=== PATIENT | female | born 1995 | race Caucasian/White ===

== ENCOUNTER 2017-04-07 17:28 | Emergency (ER) | payer BC ==
--- NOTE | 2017-04-07 17:47 | UC ---
Minor Trauma HPI - HPI Summary HPI Summary: 21 YEAR OLD FEMALE PRESENTS WITH NECK PAIN, BACK PAIN AND BILATERAL RIB PAIN. NO TRAUMA. - History of Current Complaint Stated Complaint: RIB,BACK,NECK PAIN Time Seen by Provider: 04/07/17 17:47 Hx Obtained From: Patient Hx Last Menstrual Period: 03/08/15 Onset/Duration: Lasting Days Severity Initially: Moderate Severity Currently: Moderate Pain Scale Used: 0-10 Numeric - 6 - Allergies/Home Medications Allergies/Adverse Reactions: Allergies Allergy/AdvReac Type Severity Reaction Status Date / Time No Known Allergies Allergy Verified 04/07/17 17:49 Home Medications: Home Medications Acetaminophen TAB* [Tylenol TAB*] 1,000 mg PO Q6H PRN 04/07/17 [History Confirmed 04/07/17] PMH/Surg Hx/FS Hx/Imm Hx Previously Healthy: Yes - Surgical History Surgical History: None - Social History Alcohol Use: None Substance Use Type: None Smoking Status (MU): Never Smoked Tobacco Household Exposure Type: Cigarettes - Immunization History Vaccination Up to Date: Yes Review of Systems Constitutional: Negative Skin: Negative Eyes: Negative ENT: Negative Respiratory: Negative Cardiovascular: Negative Gastrointestinal: Negative Genitourinary: Negative Motor: Negative Neurovascular: Negative Musculoskeletal: Other: - BACK, NECK AND BILATERAL RIB PAIN Neurological: Negative Psychological: Negative All Other Systems Reviewed And Are Negative: Yes Physical Exam Triage Information Reviewed: Yes Appearance: Well-Appearing Eye Exam: Normal ENT Exam: Normal Dental Exam: Normal Neck exam: Normal Neck: Positive: 1 Respiratory Exam: Normal Cardiovascular Exam: Normal Abdominal Exam: Normal Musculoskeletal: Positive: Other: - NECK PAIN BILATERAL UPPER BACK SPASM BILATERAL RIB PAIN Neurological Exam: Normal Psychological Exam: Normal Skin Exam: Normal Minor Trauma Course/Dx - Differential Dx/Diagnosis Provider Diagnoses: BACK PAIN. NECK PAIN. BILATERAL RIB PAIN Discharge - Discharge Plan Condition: Stable Disposition: HOME Prescriptions: Meloxicam(NF) [Mobic(NF)] 7.5 mg PO BID PRN #30 tab PRN Reason: Pain Methocarbamol TAB* [Robaxin 500 MG TAB*] 500 mg PO TID PRN #30 tab PRN Reason: Spasms - Back Patient Education Materials: Costochondritis (ED) Referrals: Myles Johns MD [Medical Doctor] - Nav Alfonso MD [Medical Doctor] -
[2017-04-07 17:53] VITALS: BP 114/75
--- NOTE | 2017-04-07 19:14 | RAD ---
INDICATION: Pain COMPARISON: None TECHNIQUE: PA and lateral views of the chest were obtained. FINDINGS: The heart and mediastinum are normal in size and contour. The lungs are grossly clear. There is no evidence of large pleural effusion. Visualized bones are normal for the patient's age. There is no radiographic evidence of free air beneath the diaphragm IMPRESSION: No radiographic evidence of acute cardiopulmonary disease.
== END 2017-04-07 19:20 | disposition home or self-care (01) ==
LOC: UCCORT 17:28
DX: M54.2 Cervicalgia (principal); M54.9 Dorsalgia, unspecified; R07.81 Pleurodynia; Z32.02 Encounter for pregnancy test, result negative
CPT/HCPCS: 71020; 81003; 84702; 87086; 99212; G0463

== ENCOUNTER 2017-09-03 15:56 | Emergency (ER) | payer BC ==
[2017-09-03 16:37] VITALS: BP 117/68
--- NOTE | 2017-09-03 18:33 | UC ---
Throat Pain/Nasal Rocky HPI - HPI Summary HPI Summary: [address], PAIN WITH SWALLOWING, WEINSTEIN AND COUGH. NO FEVER SHE IS AWARE OF. NO N /V/D OR BODY ACHES. NO FLU SHOT THIS SEASON. - History of Current Complaint Chief Complaint: UCGeneralIllness Stated Complaint: SORE THROAT 3 DAYS Time Seen by Provider: 09/03/17 18:24 Hx Obtained From: Patient Hx Last Menstrual Period: 08/18/17 Onset/Duration: Gradual Onset, Lasting Days, Still Present Severity: Moderate Pain Intensity: 9 Pain Scale Used: 0-10 Numeric Cough: Nonproductive Associated Signs & Symptoms: Positive: Negative - Allergies/Home Medications Allergies/Adverse Reactions: Allergies Allergy/AdvReac Type Severity Reaction Status Date / Time No Known Allergies Allergy Verified 09/03/17 16:37 PMH/Surg Hx/FS Hx/Imm Hx Neurological History: Seizures - Surgical History Surgical History: None - Family History Known Family History: Negative: Hypertension - Social History Alcohol Use: None Substance Use Type: None Smoking Status (MU): Never Smoked Tobacco Household Exposure Type: Cigarettes - Immunization History Vaccination Up to Date: Yes Review of Systems Constitutional: Fatigue ENT: Sore Throat Respiratory: Cough Cardiovascular: Negative Gastrointestinal: Negative Neurological: Headache All Other Systems Reviewed And Are Negative: Yes Physical Exam Triage Information Reviewed: Yes Appearance: Well-Appearing, No Pain Distress, Well-Nourished Vital Signs: Initial Vital Signs Temp 99.7 F 09/03/17 16:32 Pulse 70 09/03/17 16:32 Resp 16 09/03/17 16:32 BP 117/68 09/03/17 16:32 Pulse Ox 100 09/03/17 16:32 Vital Signs Reviewed: Yes Eyes: Positive: Conjunctiva Clear ENT: Positive: Hearing grossly normal, Pharynx normal, Other - BILAT TM OCCLUDED WITH CERUMEN Neck: Positive: Supple, Nontender, Enlarged Nodes @ - MODERATE SPFL CERVICAL LAD - NON TENDER Respiratory Exam: Normal Cardiovascular Exam: Normal Abdomen Description: Positive: Soft Musculoskeletal: Positive: No Edema Neurological: Positive: Alert Psychological: Positive: Age Appropriate Behavior Skin: Negative: rashes Diagnostics - Laboratory Diagnostic Studies Completed/Ordered: STREP NEG. FLU NEG Throat Pain/Nasal Course/Dx - Differential Dx/Diagnosis Provider Diagnoses: ACUTE VIRAL SYNDROME - SUSPECT MONONUCLEOSIS Discharge - Discharge Plan Condition: Stable Disposition: HOME Patient Education Materials: Viral Syndrome (ED) Forms: *Work Release Referrals: No Primary Care Phys,NOPCP [Primary Care Provider] - Additional Instructions: STREP AND FLU BOTH NEG. SUSPECT MONONUCLEOSIS. MONO TEST DRAWN TODAY. REST, HYDRATE, OTC MEDS NEEDED. SEEK FOLLOW-UP IF YOUR SYMPTOMS DO NOT IMPROVE EXPECTED.
== END 2017-09-03 19:12 | disposition home or self-care (01) ==
LOC: UCCORT 15:56
DX: B34.9 Viral infection, unspecified (principal)
CPT/HCPCS: 36415; 86308; 87502; 87651; 99211; G0463

== ENCOUNTER 2017-11-19 20:30 | Emergency (ER) | payer BC ==
[2017-11-19 21:03] VITALS: BP 123/81
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
--- NOTE | 2017-11-19 21:40 | RAD ---
INDICATION: Left rib injury COMPARISON: None TECHNIQUE: Multiple views of the ribs were obtained. FINDINGS: Bones: There is no evidence of acute rib fracture. LUNGS: The lungs are clear. There is no pneumothorax. Pleural spaces: There is no evidence of hemothorax. Other: None IMPRESSION: NEGATIVE RIB SERIES.
== END 2017-11-19 21:57 | disposition home or self-care (01) ==
LOC: UCCORT 20:30
DX: S20.212A Contusion of left front wall of thorax, initial encounter (principal); W50.0XXA Accidental hit or strike by another person, initial encounter; Y93.89 Activity, other specified; Y92.9 Unspecified place or not applicable; M54.9 Dorsalgia, unspecified
CPT/HCPCS: 99211; G0463

== ENCOUNTER 2018-06-23 21:21 | Emergency (ER) | payer BC, OTHER ==
[2018-06-23] MEDS ORDERED: Ibuprofen ADULT LIQ* 600 MG/30 ML UDC PO ONE (21:41)
[2018-06-23 21:45] VITALS: BP 139/82
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
--- NOTE | 2018-06-24 08:27 | UC ---
- Progress Note Progress Note: Left wrist x-ray from June 23, 2018 has been read by the radiologist as no acute disease. The provider from the same date also read it as no fracture. Therefore there is no discrepancy. Course/Dx - Diagnoses Provider Diagnoses: Left wrist sprain Discharge - Sign-Out/Discharge Documenting (check all that apply): Patient Departure All imaging exams completed and their final reports reviewed: Yes - Discharge Plan Condition: Stable Disposition: HOME Patient Education Materials: Wrist Sprain (ED) Forms: *Work Release Referrals: Myles Johns MD [Medical Doctor] - Additional Instructions: WEAR SPLINT UNTIL CLEARED. FOLLOW UP DR JOHNS IN 5 DAYS FOR A RECHECK OR SOONER IF WORSE. - Billing Disposition and Condition Condition: STABLE Disposition: Home
== END 2018-06-23 22:05 | disposition home or self-care (01) ==
LOC: UCCORT 21:21
DX: S63.502A Unspecified sprain of left wrist, initial encounter (principal); X50.0XXA Overexertion from strenuous movement or load, initial encounter; Y93.89 Activity, other specified; Y92.009 Unspecified place in unspecified non-institutional (private) residence as the place of occurrence of the external cause
CPT/HCPCS: 99213; A9270-GY; G0463

== ENCOUNTER 2018-10-08 09:54 | Emergency (ER) | payer BC ==
--- OUTSIDE RECORDS SUMMARY | 2018-10-08 10:08 | XMS REPORT | Continuity of Care Document ---
:1995 External Reference #:[id number] Author Name Alaina Knight Care Team Providers Name Role Phone Nuha Brito M.D. Care Team Information Choir Member Unavailable Payers Date Identification Numbers Payment Provider Subscriber Effective: 2018 Policy Number: [id number] [employer] Destiny Bhatia PayID: [id number] [address] [address] [place] [address] Expires: 2015 Policy Number: [employer] Medicaid Destiny Bhatia [id number] PayID: [id number] [address] [address] [place] [address] Effective: 2018 Policy Number: [id number] [place] [employer] Destiny Bhatia Onset: 2018 Group Name: [address] [address] PayID: [place] [address] Advance Directives Description No Information Available Problems Date Description Provider Status Onset: 07/17/2015 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 Father No Current Problems Social History Type Date Description Comments Sex Unknown Marital Status Single Lives With Brother Occupation Currently Working ETOH Use Occasionally consumes alcohol Tobacco Use Start: Unknown Patient has never smoked Recreational Drug Use Denies Drug Use Smoking Status Reviewed: 09/21/18 Patient has never smoked Allergies, Adverse Reactions, Alerts Description No Known Drug Allergies Medications Medication Date Status Form Strength Qnty SIG Indications Ordering Provider Ibuprofen Active Capsules 200mg as needed Unknown 0 Tylenol Active Tablets 325mg take 2 tabs Unknown 0 as needed every 6 hours for pain/fever Miralax Hx Powder 3350NF 17 gm every Unknown 0 - day as needed 8 Colace Hx Capsules 100mg 1 by mouth Unknown 0 - daily 8 Immunizations Description No Information Available Vital Signs Date Vital Result Comment 09/21/2018 8:29am Height 63 inches 5'3" Weight 105.00 lb BP Systolic Sitting 114 mmHg BP Diastolic Sitting 62 mmHg Respiratory Rate 16 /min Pain Level 4 BMI (Body Mass Index) 18.6 kg/m2 07/24/2018 8:36am Height 63 inches 5'3" Weight 105.00 lb Heart Rate 70 /min BP Systolic Sitting 110 mmHg L BP Diastolic Sitting 60 mmHg L Respiratory Rate 12 /min Pain Level 3 O2 % BldC Oximetry 98 % BMI (Body Mass Index) 18.6 kg/m2 07/10/2018 8:48am Height 63 inches 5'3" Weight 105.00 lb Heart Rate 72 /min BP Systolic Sitting 108 mmHg BP Diastolic Sitting 68 mmHg Pain Level 6 BMI (Body Mass Index) 18.6 kg/m2 06/25/2018 10:11am Height 63 inches 5'3" Weight 105.00 lb BP Systolic Sitting 116 mmHg BP Diastolic Sitting 68 mmHg Respiratory Rate 16 /min Pain Level 8 BMI (Body Mass Index) 18.6 kg/m2 07/17/2015 11:02am Height 63 inches 5'3" Weight 115.00 lb Heart Rate 68 /min BP Systolic Sitting 112 mmHg BP Diastolic Sitting 72 mmHg Respiratory Rate 14 /min BMI (Body Mass Index) 20.4 kg/m2 Blood Pressure Percentile 0 % Height Percentile 31 % Weight Percentile 27th Results Description No Information Available Procedures Date Code Description Status 05/21/2012 03018 EEG Recording Awake & Asleep Completed Encounters Type Date Location Provider Dx Diagnosis Office Visit 07/24/2018 Orthopedic Myles Johns, S54.12xD Injury of median 8:45a [facility] MD nerve at forearm [place] level, left arm, subs S54.12xD 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, left arm, subs Office Visit 07/10/2018 8:45a Orthopedic Myles [place] S54.12xD Injury of [facility] Linda Johns MD median nerve AT [place] at forearm level, left arm, subs S54.12xD 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, left arm, subs Office Visit 06/25/2018 10:15a [facility] [place] S54.12xA Injury of [facility] Linda Johns MD median nerve AT [place] at forearm level, left arm, init S63.502A Unspecified sprain of left wrist, initial encounter Office 07/17/2015 [place]/[facility] Jenkins G40.319 Generalized Visit 11:00a [facility]o idiopathic [employer] epilepsy, intractable, w/o stat epi Office 04/20/2012 [place]/[facility]ick Jenkins 345.00 Epilepsy Visit 2:15p [facility] Nonconvulsive W/O [employer] Intractable Plan of Treatment 09/21/2018 - Myles Johns MDG56.02 Carpal tunnel syndrome, left upper limbNew Orders:EMG w/Nerve Conduct Study, Upper, Ordered: 09/21/18Follow up: Follow up: after testing is [id number] 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, left arm, subsequenNew Orders:EMG w/Nerve Conduct Study, Upper, Ordered: 09/21/18Follow up:Follow up: after testing is completed
[2018-10-08 10:31] VITALS: BP 119/73
--- NOTE | 2018-10-08 10:48 | UC ---
Lower Extremity/Ankle HPI - HPI Summary HPI Summary: Right foot pain that started in great toe on Friday. Now has pain on the top of the foot and up around her ankle. Worse with applying pressure. Noted some swelling. Denies any known trauma. Denies history of gout. [ End ] - History of Current Complaint Chief Complaint: UCLowerExtremity Stated Complaint: RIGHT FOOT PAIN Time Seen by Provider: 10/08/18 10:38 Hx Obtained From: Patient Hx Last Menstrual Period: 09/2018 ?: No Onset/Duration: Sudden Onset, Lasting Days Severity Initially: Severe Severity Currently: Severe Pain Intensity: 9 Aggravating Factor(s): Standing, Ambulation Alleviating Factor(s): Rest Able to Bear Weight: Yes - Allergies/Home Medications Allergies/Adverse Reactions: Allergies Allergy/AdvReac Type Severity Reaction Status Date / Time No Known Allergies Allergy Verified 10/08/18 10:25 Home Medications: Home Medications Acetaminophen [Tylenol Extra Strength] 1,000 mg PO Q6HR PRN 10/08/18 [History Confirmed 10/08/18] PMH/Surg Hx/FS Hx/Imm Hx Previously Healthy: Yes - Surgical History Surgical History: None - Family History Known Family History: Negative: Hypertension - Social History Alcohol Use: Occasionally Substance Use Type: None Smoking Status (MU): Never Smoked Tobacco Have You Smoked in the Last Year: No Household Exposure Type: Cigarettes - Immunization History Vaccination Up to Date: Yes Review of Systems All Other Systems Reviewed And Are Negative: Yes Constitutional: Positive: Negative Skin: Positive: Negative Eyes: Positive: Negative ENT: Positive: Negative Respiratory: Positive: Negative Cardiovascular: Positive: Negative Gastrointestinal: Positive: Negative Genitourinary: Positive: Negative Motor: Positive: Negative Neurovascular: Positive: Negative Musculoskeletal: Positive: Arthralgia, Decreased ROM, Edema, Myalgia Neurological: Positive: Negative Psychological: Positive: Negative Is Patient Immunocompromised?: No Physical Exam Triage Information Reviewed: Yes Appearance: Well-Appearing, Well-Nourished, Pain Distress Vital Signs: Initial Vital Signs Temp 97.6 F 10/08/18 10:25 Pulse 72 10/08/18 10:25 Resp 15 10/08/18 10:25 BP 119/73 10/08/18 10:25 Pulse Ox 100 10/08/18 10:25 Vital Signs Reviewed: Yes Eye Exam: Normal ENT Exam: Normal Dental Exam: Normal Neck exam: Normal Respiratory Exam: Normal Respiratory: Positive: Chest non-tender, Lungs clear, Normal breath sounds Cardiovascular Exam: Normal Cardiovascular: Positive: RRR, No Murmur, Pulses Normal Abdominal Exam: Normal Abdomen Description: Positive: Nontender, No Organomegaly, Soft Bowel Sounds: Positive: Present Musculoskeletal: Positive: Strength Limited @ - hard to walk, ROM Limited @ - due to swelling and pain in left foot, Edema @ - from toes to above the ankle Neurological Exam: Normal Neurological: Positive: Alert Psychological Exam: Normal Skin Exam: Normal Lower Extremity Course/Dx - Course Course Of Treatment: hx obtained, exam performed ,meds reviewed, xray obtained and was negative for fracture, cassius wrap applied, referred to Dr Johns if not improving. - Differential Dx/Diagnosis Differential Diagnosis/HQI/PQRI: Cellulitis, Contusion, Dislocation, Fracture ( Closed), Gout, Infection, Sprain, Strain Provider Diagnosis: Swelling of left foot, Left foot pain Discharge - Sign-Out/Discharge Documenting (check all that apply): Patient Departure All imaging exams completed and their final reports reviewed: Yes - Discharge Plan Condition: Stable Disposition: HOME Prescriptions: Cephalexin CAP* [Keflex CAP*] 500 mg PO TID #21 cap Patient Education Materials: Cellulitis (ED) Forms: *Work Release Referrals: No Primary Care Phys,NOPCP [Primary Care Provider] - Additional Instructions: 1. stay off foot, elevate at rest 2. Use the antibiotic, if not improving in the next 2-3 days, follow up with Dr Johns or your primary doctor. 3. warm water soaks 2-3 times a day - Billing Disposition and Condition Condition: STABLE Disposition: Home
== END 2018-10-08 11:48 | disposition home or self-care (01) ==
LOC: UCCORT 09:54
DX: M79.671 Pain in right foot (principal); R22.41 Localized swelling, mass and lump, right lower limb
CPT/HCPCS: 99212; G0463

== ENCOUNTER 2018-10-11 12:28 | Emergency (ER) | payer BC ==
[2018-10-11 12:58] VITALS: BP 127/70
--- NOTE | 2018-10-11 13:25 | UC ---
Lower Extremity/Ankle HPI - HPI Summary HPI Summary: pt seen here on 10/08/18 for pain in her R foot. Xray was negative, she was placed on Keflex for possible infection. She returns here today d/t pain not improving despite taking abx. No swelling, redness or deformity noted at triage. Denies fever or any injury/trauma to her R foot, she has an appt with Dr. Johns on 10/22/18 The foot has improved, the swelling is less and there is no more erythema. patient is still having pain along the top of the great toe into the foot with movement [ End ] - History of Current Complaint Chief Complaint: UCLowerExtremity Stated Complaint: RT FOOT RECHECK Time Seen by Provider: 10/11/18 13:11 Hx Obtained From: Patient Hx Last Menstrual Period: 10/02/18 ?: No Onset/Duration: Sudden Onset, Lasting Days Severity Initially: Severe Severity Currently: Severe Pain Intensity: 8 Aggravating Factor(s): Standing, Ambulation Alleviating Factor(s): Rest Able to Bear Weight: Yes - Allergies/Home Medications Allergies/Adverse Reactions: Allergies Allergy/AdvReac Type Severity Reaction Status Date / Time No Known Allergies Allergy Verified 10/11/18 12:58 PMH/Surg Hx/FS Hx/Imm Hx Previously Healthy: Yes - Surgical History Surgical History: None - Family History Known Family History: Negative: Hypertension - Social History Alcohol Use: Occasionally Substance Use Type: None Smoking Status (MU): Never Smoked Tobacco Have You Smoked in the Last Year: No Household Exposure Type: Cigarettes - Immunization History Vaccination Up to Date: Yes Review of Systems All Other Systems Reviewed And Are Negative: Yes Constitutional: Positive: Negative Skin: Positive: Negative Eyes: Positive: Negative ENT: Positive: Negative Respiratory: Positive: Negative Cardiovascular: Positive: Negative Gastrointestinal: Positive: Negative Genitourinary: Positive: Negative Motor: Positive: Negative Musculoskeletal: Positive: Arthralgia Neurological: Positive: Negative Psychological: Positive: Negative Is Patient Immunocompromised?: No Physical Exam Triage Information Reviewed: Yes Appearance: Well-Appearing, Well-Nourished, Pain Distress Vital Signs: Initial Vital Signs Temp 98.8 F 10/11/18 12:50 Pulse 62 10/11/18 12:50 Resp 16 10/11/18 12:50 BP 127/70 10/11/18 12:50 Pulse Ox 99 10/11/18 12:50 Vital Signs Reviewed: Yes Eye Exam: Normal ENT Exam: Normal Dental Exam: Normal Neck exam: Normal Respiratory Exam: Normal Respiratory: Positive: Chest non-tender, Lungs clear, Normal breath sounds Cardiovascular Exam: Normal Cardiovascular: Positive: RRR, No Murmur, Pulses Normal Abdominal Exam: Normal Abdomen Description: Positive: Nontender, No Organomegaly Bowel Sounds: Positive: Present Musculoskeletal: Positive: No Edema, Strength Limited @ - difficult to bear weight on right great toe, ROM Limited @ - in great toe Neurological Exam: Normal Neurological: Positive: Alert Psychological Exam: Normal Skin Exam: Normal Lower Extremity Course/Dx - Course Course Of Treatment: hx obtained, exam performed , meds reviewed, foot has improved since last visit , advised to continue with current treatment and to use post op shoe for more support. follow up with ortho at scheduled appointment. - Differential Dx/Diagnosis Differential Diagnosis/HQI/PQRI: Cellulitis, Fracture (Closed), Sprain, Strain Provider Diagnosis: Right foot pain Discharge - Sign-Out/Discharge Documenting (check all that apply): Patient Departure All imaging exams completed and their final reports reviewed: No Studies - Discharge Plan Condition: Stable Disposition: HOME Patient Education Materials: Arthralgia (ED) Referrals: No Primary Care Phys,NOPCP [Primary Care Provider] - Additional Instructions: 1. the foot is improving, 2. continue with the keflex 3. Continue with Tylenol 1000 mg and 400-600 mg of ibuprofen every 8 hours. 4. Warm water saoks 1-2 times a day 5. use the post op shoe for more support. 6. Elevated foot at rest and follow up with your Dr johns appointment. - Billing Disposition and Condition Condition: STABLE Disposition: Home - Attestation Statements Provider Attestation: Per institutional requirements, I have reviewed the chart, however, I was not consulted specifically or made aware of this patient by the midlevel provider. I did not personally evaluate, interact with , or disposition this patient.
== END 2018-10-11 13:34 | disposition home or self-care (01) ==
LOC: UCCORT 12:28
DX: M79.671 Pain in right foot (principal)
CPT/HCPCS: 99211; G0463

== ENCOUNTER 2019-03-04 06:31 | Day surgery (SDC) | payer BC, OTHER ==
[~2019-03-04 06:31] MED LIST: Buffered Lidocaine 1% SYRIN* 1 ML/SYRINGE INTRADERM ONE; Famotidine IV* 10 MG/ML 2 ML (20 mg) IV ONE; Famotidine IV* 10 MG/ML 2 ML (20 mg) ONE; Lactated Ringers 1000 ML Bag* 1,000 ML IV SCH
[2019-03-04] MEDS ORDERED: Buffered Lidocaine 1% SYRIN* 1 ML/SYRINGE INTRADERM ONE (07:06)
[2019-03-04] MEDS ORDERED: Bupivacaine 0.25% SDV* 30 ML ONE (07:15)
[2019-03-04] MEDS ORDERED: Midazolam* 1 MG/ML 5 ML VIAL (5 MG) ONE (07:36)
[2019-03-04] MEDS ORDERED: fentaNYL* 50 MCG/ML 2 ML VIAL (100 MCG VIAL) ONE (07:36)
[2019-03-04] MEDS ORDERED: Ketorolac INJ* 30 MG/ML 1 ML VIAL ONE (07:44)
[2019-03-04] MEDS ORDERED: Propofol* 10 MG/ML 20 ML BTL ONE (07:44)
[2019-03-04] MEDS ORDERED: Lidocaine 2% PF * 5 ML VIAL ONE (07:44)
[2019-03-04] MEDS ORDERED: DiMENhydriNATE IV* 50 MG/ML VIAL IV PUSH PRN (07:56)
[2019-03-04] MEDS ORDERED: Acetaminophen TAB* 325 MG PO PRN (07:56)
[2019-03-04] MEDS ORDERED: Naloxone* 0.4 MG/ML 1 ML VIAL IV PRN (07:56)
[2019-03-04] MEDS ORDERED: Ondansetron INJ* 2 MG/ML VIAL ONE (08:08)
[2019-03-04 10:00] VITALS: BP 113/65
--- NOTE | 2019-03-04 14:50 | OP ---
DATE OF OPERATION: 03/04/19 [facility] DATE OF : 89 SURGEON: Román Shen MD LUMBER STACKER OPERATOR: CHARLETTE Headley ANESTHESIOLOGIST: Dr. Franks. ANESTHESIA: Local MAC. PRE-OP DIAGNOSES: 1. Left carpal tunnel syndrome. 2. 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 POST-OP DIAGNOSES: 1. Left carpal tunnel syndrome. 2. 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 OPERATIVE PROCEDURE: 1. Left open carpal tunnel release. 2. Left median nerve decompression in the proximal forearm with release of the lacertus fibrosus. INDICATIONS: Destiny has significant progressive symptoms, being unable to stop them nonoperatively, we decided together to do the releases. She understands the risks and benefits. She wanted to proceed. She understands there is a risk that she could develop symptoms despite doing surgery. ESTIMATED BLOOD LOSS: 2 mL. COMPLICATIONS: None. FINDINGS: See above and below. OPERATIVE PROCEDURE: Destiny was seen in the preoperative holding area. The correct site, side, and procedures were identified. We came back to the operating room. The arm was prepped and draped in the usual fashion. I then anesthetized the operative site with 0.25% plain Marcaine. A time-out was performed. The arm was exsanguinated with the Esmarch and the tourniquet was inflated to 225 mmHg. I made a longitudinal incision about 2 cm in the proximal palm. Dissection was carried down through the subcutaneous tissue and palmar fascia. Transverse carpal ligament was released just off the radial aspect of the hook of the hamate and the release was completed distally and then proximally, I released the subcutaneous tissue and fascia and retracted that out of the way and released the remainder of the transverse carpal ligament and distal antebrachial fascia. I thought there was a band of distal antebrachial fascia just proximal at the wrist crease that I could not get with good visualization, I thought I could get it safely, so I made a 1-cm transverse incision just proximal to the wrist flexion crease overlying that band. Dissection was carried down. Ragnell retractors were placed. The band was seen. I released the remainder of the distal antebrachial fascia. At this point, the release was completed, it was looking excellent. I irrigated out the wound. The skin was closed with 4-0 nylon suture. I then turned my attention to the proximal forearm. I started just off the ulnar aspect of the distal biceps tendon and made a 2-cm transverse incision over the lacertus fibrosus. Dissection was carried down bluntly. Full thickness flaps were raised off the lacertus fibrosus and the antebrachial fascia. The lacertus fibrosus was released with the tenotomy scissors. I went ahead and released the fascia overlying the median nerve distally for several centimeters and then proximally as well for several centimeters taking great care to preserve the neurovascular structures. At this point, everything was looking good. The nerve was looking very nicely released. I had excellent visualization of the median nerve. The wound was irrigated out and the skin was closed with 3-0 Monocryl and Steri-Strips. The wounds were dressed with Xeroform, 4x4, sterile Webril and then Mitchel bandage. She was taken to the recovery room in stable condition. [id number]/CPS #: [id number] FREDO
== END 2019-03-04 10:12 | disposition home or self-care (01) ==
LOC: OREAST 06:31
PROVIDERS: ATTEND Orthopaedic Surgery Hand Surgery
DX: G56.02 Carpal tunnel syndrome, left upper limb (principal); G56.12 Other lesions of median nerve, left upper limb; G40.309 Generalized idiopathic epilepsy and epileptic syndromes, not intractable, without status epilepticus
CPT/HCPCS: 81025; J1885; J2250; J2405; J2704; J3010; J3490

== ENCOUNTER 2019-10-21 10:07 | Emergency (ER) | payer OTHER ==
[2019-10-21 10:33] VITALS: BP 117/70
--- NOTE | 2019-10-21 10:54 | UC ---
Throat Pain/Nasal Rocky HPI - HPI Summary HPI Summary: Patient is a 24yo female presenting with sore throat since yesterday. Denies other URI symptoms. Notes WEINSTEIN. Denies fever and chills. Denies difficulty swallowing but notes increased pain with it. Denies n/v. Taking ibuprofen and tylenol with minimal relief of pain. - History of Current Complaint Chief Complaint: UCRespiratory Stated Complaint: ST Hx Obtained From: Patient Hx Last Menstrual Period: 09/27/19 Pain Intensity: 10 Pain Scale Used: 0-10 Numeric - Allergies/Home Medications Allergies/Adverse Reactions: Allergies Allergy/AdvReac Type Severity Reaction Status Date / Time No Known Allergies Allergy Verified 10/21/19 10:15 Home Medications: Home Medications Acetaminophen [Tylenol Extra Strength] 1,000 mg PO Q6HR PRN 10/08/18 [History Confirmed 10/21/19] Ibuprofen 800 mg PO Q6H PRN 02/23/19 [History Confirmed 10/21/19] Penicillin VK 500 MG TAB(NF) [Penicillin VK 500 mg Tab] 500 mg PO BID 10 Days # 20 tab 10/21/19 [Rx] PMH/Surg Hx/FS Hx/Imm Hx Previously Healthy: Yes - Surgical History Surgical History: Yes Surgery Procedure, Year, and Place: LEFT WRIST CARPAL TUNNEL RELEASE DECOMPRESSION - NO METAL 03[place]04/[place] [facility] [place] Family History Known Family History: Negative: Hypertension - Social History Alcohol Use: Occasionally Substance Use Type: None Smoking Status (MU): Never Smoked Tobacco Have You Smoked in the Last Year: No Household Exposure Type: Cigarettes - Immunization History Vaccination Up to Date: Yes Review of Systems All Other Systems Reviewed And Are Negative: Yes Constitutional: Positive: Negative ENT: Positive: Sore Throat Respiratory: Positive: Negative Cardiovascular: Positive: Negative Gastrointestinal: Positive: Negative Musculoskeletal: Positive: Negative Neurological/Mental Status: Positive: Headache Physical Exam - Summary Physical Exam Summary: Vital Signs Reviewed: Yes A+Ox3, no distress Eyes: Conjunctiva Clear ENT: Hearing grossly normal, b/l cerumen impaction, moist, uvula midline, + exudates, +erythema, +tonsillar swelling Neck: Positive: Supple, +tonsillar node enlargement Respiratory: Positive: No respiratory distress, No accessory muscle use + CTA throughout no w/r Cardiovascular: RRR nl s1, s2 no m/r Musculoskeletal Exam: ARAUJO x 4 without difficulty Neurological: Positive: Alert Psychological: Positive: age appropriate behavior Skin: Positive: no rash, no ecchymosis Vital Signs: Initial Vital Signs Temp 98.6 F 10/21/19 10:16 Pulse 105 10/21/19 10:16 Resp 16 10/21/19 10:16 BP 117/70 10/21/19 10:16 Pulse Ox 100 10/21/19 10:16 Lab Results 10/21/19 Range/Units 10:47 Group A Strep Rapid Positive H (Negative) Throat Pain/Nasal Course/Dx - Course Course Of Treatment: Positive rapid strep. Ear irrigation performed on b/l ears with cerumen removed from left to reveal normal TM. Cerumen impaction not improved on the right and patient intolerant of continued attempts at removal. Instructed to follow up with pcp if needed. I treated patient with penicillin vk and instructed to return or follow up with pcp if no improvement within 10 days. Patient voiced understanding and agreed with treatment plan. - Differential Dx/Diagnosis Provider Diagnosis: Impacted cerumen of both ears, Strep pharyngitis Discharge ED - Sign-Out/Discharge Documenting (check all that apply): Patient Departure All imaging exams completed and their final reports reviewed: No Studies - Discharge Plan Condition: Stable Disposition: HOME Prescriptions: Penicillin VK 500 MG TAB(NF) [Penicillin VK 500 mg Tab] 500 mg PO BID 10 Days # 20 tab Patient Education Materials: Strep Throat (ED) Referrals: No Primary Care Phys,NOPCP [Primary Care Provider] - Additional Instructions: As discussed, you tested positive for strep throat today. Take penicillin as prescribed for the treatment of strep throat. You may take ibuprofen and/or tylenol as directed for fever and pain relief. You may use over the counter throat sprays or lozenges for symptomatic relief. Get plenty of rest and fluids. Return or follow up with your primary care provider if symptoms do not improve within 10 days. - Billing Disposition and Condition Condition: STABLE Disposition: Home
== END 2019-10-21 11:46 | disposition home or self-care (01) ==
LOC: UCCORT 10:07
DX: J02.0 Streptococcal pharyngitis (principal); H61.23 Impacted cerumen, bilateral
CPT/HCPCS: 87651; 99213; G0463